=== PATIENT | male | born 1935 | race Caucasian/White ===

== ENCOUNTER 2018-01-28 10:04 | Day surgery (SDC) | payer MEDICARE, OTHER ==
[~2018-01-28 10:04] MED LIST: BUPIVACAINE HCL 0.75% INJ/PF (7.5 MG/1 ML) 10 ML SDV OD PRN; CHONDR SU A NA/HYALUR INTRAOC KIT (SURGICARE) ONE; EPINEPHRINE INJ/PF 1 MG/1 ML AMPULE ONE; KETOROLAC TROMETHAMINE 0.45% 4 DROP/0.4 ML DROPERETTE OD PRN; LIDOCAINE 1% INJ-PF (10 MG/ML) 30 ML SDV ONE; LIDOCAINE 4% INJ/PF (40 MG/ML) 5 ML AMPUL OD PRN
[2018-01-28] MEDS: TETRACAINE HCL 0.5% OPH SOLN 0.6 ML DROPERETTE OD PRN ×2 (10:21→10:44)
[2018-01-28] MEDS: TROPICAMIDE 1% OPH SOLN 3 ML OD PRN ×3 (10:22→10:44)
[2018-01-28] MEDS: CYCLOPENTOLATE 0.2%/PHENYLEPHRINE 1% OPH SOLN 2 ML OD PRN ×3 (10:22→10:44)
[2018-01-28] MEDS: BESIFLOXACIN HCL 0.6% OPH SUSP 5 ML BOTTLE OD PRN ×3 (10:23→11:16)
[2018-01-28] MEDS ORDERED: FENTANYL CITRATE INJ/PF 100 MCG/2 ML AMPUL ONE (10:29)
[2018-01-28] MEDS ORDERED: MIDAZOLAM 2 MG/2 ML INJ ONE (10:29)
[2018-01-28] MEDS ORDERED: ONDANSETRON HCL INJ/PF 4 MG/2 ML SDV ONE (10:30)
--- NOTE | 2018-01-28 11:44 | [facility] OPERATIVE REPORT E ---
[facility] Operative Report NAME: CRISTIAN MOMIN AGE: 82Y DATE OF SURGERY: 01/28/2018 ROOM: PREOPERATIVE DIAGNOSIS: Cataract, right eye. POSTOPERATIVE DIAGNOSIS: Cataract, right eye. PROCEDURE PERFORMED: Phacoemulsification with posterior chamber intraocular lens, right eye. SURGEON: MARTELL JEREZ M.D. ANESTHESIA: Topical with MAC. INDICATION FOR SURGERY: Difficulty reading road signs and small print. BEST CORRECTED VISUAL ACUITY: 20/50. DESCRIPTION OF PROCEDURE: The patient was brought to the operating room and placed on the operative table. Following tetracaine drops, topical anesthesia was administered. This consisted of instrument wipe pledgets soaked in a solution of 4% Xylocaine mixed with 0.75% Marcaine in a 1:2 ratio. A 2 x 1 cm pledget was placed in the superior fornix. A 1 x 1 cm pledget was placed in the inferior fornix. The eye was patched shut for 5 minutes. The patch was removed. The eye was sterilely prepped and draped in the usual manner. Lid speculum was placed in the eye. The pledgets were removed, 4-0 black silk sutures were placed around the superior and the inferior rectus muscles to be used as traction. A conjunctival peritomy was made at the 10 o'clock position. Hemostasis was obtained with bipolar cautery. A posterior limbal groove was created using a crescent knife and dissected anteriorly towards the cornea. A sharp point blade was used to create a paracentesis site at the 2 o'clock position. A 2.4 mm keratome was used to enter the anterior chamber through the groove. Viscoelastic was injected into the anterior chamber. An anterior capsulotomy was performed using Utrata forceps in a capsulorrhexis fashion. Hydrodissection and hydrodelineation were performed. Phacoemulsification was performed in qniehb-zer-yglmrvy technique. Total phaco time, 55 seconds. Following this, the I/A unit was used to remove residual cortex. Viscoelastic was injected into the capsular bag. Intraocular lens Model [id number], 21.5 diopters, serial number [id number] was placed in the capsular bag. The I/A unit was used to remove residual viscoelastic. The wound was seen to be watertight under high and low pressure, and no sutures were placed. The intraocular lens was well centered. The pressure was adjusted in the eye to normal pressure. The 4-0 black silk sutures and lid speculum were removed. The eye was shielded after Besivance drops were placed. The patient tolerated the procedure well and was sent to the recovery room in good condition. DICTATING PHYSICIAN: AMRTELL JEREZ M.D. [id number] PHY#: [id number] ID: [id number] JOB#: [id number] ACCT: [id number] cc:MARTELL JEREZ M.D. >
--- NOTE | 2018-01-28 11:49 | [facility] DISCHARGE SUMMARY E ---
[facility] Discharge Summary NAME: CRISTIAN MOMIN AGE: 82Y ADMITTED: 01/28/2018 DISCHARGED: 01/28/2018 HOSPITAL COURSE: The patient is an 82-year-old gentleman who underwent uneventful cataract extraction with intraocular lens implant, right eye, on 01/28/2018. He will be discharged to home. He was instructed to resume preoperative medications, to take Tylenol as needed for discomfort, to keep his eye shielded, to use Durezol, Ilevro, and Besivance at 3:00 p.m. and 8:00 p.m., and to follow up in my office in 1 day. DICTATING PHYSICIAN: MARTELL JEREZ M.D. [id number] PHY#: [id number] ID: [id number] JOB#: [id number] ACCT: [id number] cc:MARTELL JEREZ M.D. >
== END 2018-01-28 12:05 | disposition home or self-care (01) ==
LOC: SC 10:04
PROVIDERS: ATTEND Ophthalmology
DX: H25.813 Combined forms of age-related cataract, bilateral (principal); H18.00 Unspecified corneal deposit; H04.123 Dry eye syndrome of bilateral lacrimal glands; H40.033 Anatomical narrow angle, bilateral; H01.002 Unspecified blepharitis right lower eyelid; H01.005 Unspecified blepharitis left lower eyelid; H43.813 Vitreous degeneration, bilateral; G47.33 Obstructive sleep apnea (adult) (pediatric); I10 Essential (primary) hypertension; Z87.891 Personal history of nicotine dependence
CPT/HCPCS: 66984; V2632; J2250; J3490 ×4; A9270; J0171; J2405; 142; J3010

== ENCOUNTER 2018-02-27 09:48 | Day surgery (SDC) | payer MEDICARE, OTHER ==
[~2018-02-27 09:48] MED LIST changes: -BUPIVACAINE HCL 0.75% INJ/PF (7.5 MG/1 ML) 10 ML SDV OD PRN; +BUPIVACAINE HCL 0.75% INJ/PF (7.5 MG/1 ML) 10 ML SDV OS PRN; -CHONDR SU A NA/HYALUR INTRAOC KIT (SURGICARE) ONE; -EPINEPHRINE INJ/PF 1 MG/1 ML AMPULE ONE; -KETOROLAC TROMETHAMINE 0.45% 4 DROP/0.4 ML DROPERETTE OD PRN; +KETOROLAC TROMETHAMINE 0.45% 4 DROP/0.4 ML DROPERETTE OS PRN; -LIDOCAINE 1% INJ-PF (10 MG/ML) 30 ML SDV ONE; -LIDOCAINE 4% INJ/PF (40 MG/ML) 5 ML AMPUL OD PRN; +LIDOCAINE 4% INJ/PF (40 MG/ML) 5 ML AMPUL OS PRN
[2018-02-27] MEDS: CYCLOPENTOLATE 0.2%/PHENYLEPHRINE 1% OPH SOLN 2 ML OS PRN ×3 (10:02→10:34)
[2018-02-27] MEDS: TROPICAMIDE 1% OPH SOLN 3 ML OS PRN ×3 (10:02→10:34)
[2018-02-27] MEDS: BESIFLOXACIN HCL 0.6% OPH SUSP 5 ML BOTTLE OS PRN ×4 (10:03→11:11)
[2018-02-27] MEDS: TETRACAINE HCL 0.5% OPH SOLN 0.6 ML DROPERETTE OS PRN ×2 (10:04→10:34)
[2018-02-27] MEDS ORDERED: FENTANYL CITRATE INJ/PF 100 MCG/2 ML AMPUL ONE (10:34)
[2018-02-27] MEDS ORDERED: ONDANSETRON HCL INJ/PF 4 MG/2 ML SDV ONE (10:34)
[2018-02-27] MEDS ORDERED: MIDAZOLAM 2 MG/2 ML INJ ONE (10:34)
[2018-02-27] MEDS: CHONDR SU A NA/HYALUR INTRAOC KIT (SURGICARE) ONE ×2 (10:58)
[2018-02-27] MEDS: EPINEPHRINE INJ/PF 1 MG/1 ML AMPULE ONE ×2 (10:58)
[2018-02-27] MEDS: LIDOCAINE 1% INJ-PF (10 MG/ML) 30 ML SDV ONE ×2 (10:58)
--- NOTE | 2018-02-27 11:34 | [facility] OPERATIVE REPORT E ---
[facility] Operative Report NAME: CRISTIAN MOMIN AGE: 82Y DATE OF SURGERY: 02/27/2018 ROOM: PREOPERATIVE DIAGNOSIS: Cataract, left eye. POSTOPERATIVE DIAGNOSIS: Cataract, left eye. PROCEDURE PERFORMED: Phacoemulsification with posterior chamber intraocular lens, left eye. SURGEON: MARTELL JEREZ M.D. ANESTHESIA: Topical with MAC. INDICATIONS FOR SURGERY: Difficulty reading small print. Best corrected visual acuity 20/50. PROCEDURE: The patient was brought to the Operating Room and placed on the operative table. Following tetracaine drops, topical anesthesia was administered. This consisted of instrument wipe pledgets soaked in a solution of 4% Xylocaine mixed with 0.75% Marcaine in a 1:2 ratio. A 2 x 1 cm pledget was placed in the superior fornix. A 1 x 1 cm pledget was placed in the inferior fornix. The eye was patched shut for 5 minutes. The patch was removed. The eye was sterilely prepped and draped in the usual manner. Lid speculum was placed in the eye. The pledgets were removed. 4-0 black silk sutures were placed around the superior and the inferior rectus muscles to be used as traction. A conjunctival peritomy was made at the 10 o'clock position. Hemostasis was obtained with bipolar cautery. A posterior limbal groove was created using a crescent knife and dissected anteriorly towards the cornea. A sharp point blade was used to create a paracentesis site at the 2 o'clock position. A 2.4 mm keratome was used to enter the anterior chamber through the groove. Viscoelastic was injected into the anterior chamber. An anterior capsulotomy was performed using Utrata forceps in a capsulorrhexis fashion. Hydrodissection and hydrodelineation were performed. Phacoemulsification was performed in fdkppa-whz-pxqhthe technique. A total of 8.39 CDE phaco time was used. Following this, the I/A unit was used to remove residual cortex. Viscoelastic was injected into the capsular bag. Intraocular lens model SN60WF, 22.0 diopters, serial number [id number] was placed in the capsular bag. The I/A unit was used to remove residual viscoelastic. The wound was seen to be watertight under high and low pressure, and no sutures were placed. The intraocular lens was well centered. The pressure was adjusted in the eye to normal pressure. The 4-0 black silk sutures and lid speculum were removed. The eye was shielded after Besivance drops were placed. The patient tolerated the procedure well and was sent to the Recovery Room in good condition. DICTATING PHYSICIAN: MARTELL JEREZ M.D. [id number] [id number] PHY#: [id number] ID: [id number] JOB#: [id number] ACCT: [id number] cc:MARTELL JEREZ M.D. >
--- NOTE | 2018-02-27 11:37 | [facility] DISCHARGE SUMMARY E ---
[facility] Discharge Summary NAME: CRISTIAN MOMIN AGE: 82Y ADMITTED: 02/27/2018 DISCHARGED: 02/27/2018 HOSPITAL COURSE: The patient is an 82-year-old gentleman who underwent uneventful cataract extraction with intraocular lens implant left eye on 02/27/2018. He will be discharged to home. He is instructed to resume preoperative medications, to take Tylenol as needed for discomfort, to keep his eye shielded, to use Besivance, Durezol, and Ilevro at 3 p.m. and 8 p.m., and to follow up in my office in 1 day. DICTATING PHYSICIAN: MARTELL JEREZ M.D. [id number] [id number] PHY#: [id number] ID: [id number] JOB#: [id number] ACCT: [id number] cc:MARTELL JEREZ M.D. >
== END 2018-02-27 11:46 | disposition home or self-care (01) ==
LOC: SC 09:48
PROVIDERS: ATTEND Ophthalmology
DX: H25.812 Combined forms of age-related cataract, left eye (principal); Z96.1 Presence of intraocular lens; J44.9 Chronic obstructive pulmonary disease, unspecified; I10 Essential (primary) hypertension; G30.9 Alzheimer's disease, unspecified; Z86.73 Personal history of transient ischemic attack (TIA), and cerebral infarction without residual deficits; Z79.82 Long term (current) use of aspirin; Z70.2 Counseling related to sexual behavior and orientation of third party; Z99.81 Dependence on supplemental oxygen; Z79.51 Long term (current) use of inhaled steroids
CPT/HCPCS: 66984; V2632; J2250; J3490 ×4; A9270; J0171; J2405; 142; J3010

== ENCOUNTER → 2018-04-24 | Outpatient (CLI) | payer MEDICARE, OTHER ==
--- NOTE | 2018-04-24 09:18 | ST Modified Barium Swallow ---
Recommendation - Recommendations Recommendations: Patient presents with normal swallow with mild residue of puree and solid trials in the valleculae. Flash penetration noted on thin liquids. No diet change recommendations at this time. Medical Diagnoses - Medical Diagnoses Medical Diagnosis Description & ICD-10 Code(s): R13.12 oropharyngeal phase dysphagia Other Medical Diagnoses/Co-Morbidities: Patient unable to report. ST Modified Barium Swallow - General Date: 04/24/18 Risks/Precautions: Falls Date of Onset: 03/26/18 - Patient unable to give onset date. - History History obtained from: Patient -: Medical - Patient reports occasional coughin and choking at meals. Patient unable to give onset date. Date of referral is listed above. Patient reports he does not believe he has trouble swallowing. Currently eating regular solids and thin liquids. Patient arrive with home oxygen; unable to state liter number. Medications: Patient unable to report. Allergies: No reported allergies. - Functional Status Prior Functional Status: INDEPENDENT: feeding - Independent Current Functional Limitations: feeding - Independent - Subjective Patient/caregiver goal(s): safe swallow Cognitive-Linguistic Function: Functional Speech Intelligibility: WNL Current Nutritional Means: PO Current PO diet: Regular Current symptoms: Coughing Pain: Patient reports, 0/5 - Objective Assessment: Upright, Left Lateral - Food Trials Used Food trials used: Thin liquids, Pureed, Regular The patient: Was Able to Self Feed, via cup, via spoon - Oral-Motor Skills Dentition: Dentures-Upper, Dentures-Lower - Assessment Oral prep: Normal Labial closure: Adequate Leakage: None Mastication: Adequate Lingual Movement: Normal Oral stage: Normal for this Procedure - Pharyngeal Stage Initiation of Pharyngeal Stage Reflex: Normal Decreased laryngeal elevation: No Reduced Velopharyngeal Closure: no Reduced pressure generation: No reduced tongue-based retraction: No Pre-swallow pooling in valleculae: None Pre-Swallow pooling in pyriforms: None Reduced Thyro-Hyoid approximation: No Reduced epiglottic excursion: No Reduced pharyngeal peristalsis/contraction: No Multiple Swallows with: Cleared w/ Liquid Assist Post-swallow residulas vallecular: Mild Post-Swallow residuals in pyriforms: None Reduced Cricopharyngeal opening: No - Fall Risk Assessment Medications/Conditions that increase fall risks include: Antidepressants, sedatives, anti-arrhythmic, diuretic, benzodiazipenes, neuroleptics. BP regulation problems, cardiac problems, balance or gait deficits, neurological problems. Is patient considered at risk for falls: yes Fall Risk Actions Taken: No action needed - Behavioral Observations During evaluation process patient: was cooperative, provided medical history - Patient had difficulty reporting medications and medical conditions; patient unable to report why he was on oxygen. - Treatment / Educational Needs: Treatment/Education Needs: Treatment consisted of patient education on the role of the Speech Pathologist. Patient's plan of care and golas were communicated as well as scheduling and attendance policies. Recommendations for initial home program were shared. Patient demonstrated understanding and verbalized agreement. - Impression/Summary Laryngeal Penetration: Flash Consistency: Thin Tracheal Aspiration: no Patient presents with: Normal swallow at eval Risk of Aspiration: Minimal Risk of nutritional compromise: None Evaluation and Findings: Patient unable to give detailed medical history. Reported no complaints. Clinician administered PO trials of thin, puree and regular consistencies. Flash penetration noted on thin liquid trials only. No aspiration noted. Mild residue in the valleculae noted on pratima cracker trial. Cleared with liquid assist. No coughing noted on any consistencies. No diet change recommendations at this time. Recommend alternating solids and liduids to reduce risk from residuals. - Recommendations NPO: no Solid diet recommendations: Regular Liquid Diet Modification: Thin Strict aspiration precautions: No Pt/Family education and followup with MD: Yes Dysphagia therapy with ASSEM[employer]ER [employer]IC[employer]CTOR: no Recommended techniques: Fully Upright During Meal, Alternate Bites/Sips Supervision: Independent Information, Precautions and Recommendations: Patient (Written), Patient (Verbal ) - Time Total Time: 20 - Plan of Care Strategies to optimize patient understanding include:: ongoing assessment of educational needs, implementation of educational strategies, and re-education. - - -: Thank you for the opportunity to work with this patient and his/her family. Should you have any questions about this patient's plan or progress, I can be reached at [phone]. Charge G Code? - - -: Yes ST F.L. Impairment Category - Rationale Based On Rationale Based On: Clin Find., Obj Measures - Swallowing Current G8996: CH 0% Impaired Goal G8997: CH 0% Impaired Discharge G8998: CH 0% Impaired
--- NOTE | 2018-04-24 09:18 | RADIOLOGY REPORT (SQ) ---
EXAM DESCRIPTION: MART SWALLOW COMPLETED DATE/TIME: 04/24/2018 8:50 am REASON FOR STUDY: DYSPHAGIA OROPHARYGEAL PHASE R13.12 DYSPHAGIA, OROPHARYNGEAL PHASE COMPARISON: None. TECHNIQUE: Videofluoroscopic swallowing examination was performed in conjunction with speech patholo gy. Videofluoroscopic imaging was obtained and reviewed and these are the findings: RADIATION DOSE: 1.3 minutes fluoro time 1 images saved to PACS. LIMITATIONS: None FINDINGS: The patient was brought into the fluoro room and placed upright on a modified barium swall ow chair. The patient was then given multiple consistencies mixed with barium to swallow under live fluoroscopic video guidance. According to the Speech Pathologist there was flash laryngeal penetrati on with thin barium. No aspiration identified. All other consistencies swallowed without incident. Please refer to the speech pathology report for further details. IMPRESSION: FLASH LARYNGEAL PENETRATION, WITHOUT ASPIRATION, SEEN WITH THIN BARIUM.PLEASE SEE SPEECH PATHOLOGIST REPORT FOR OTHER FINDINGS AND RECOMMENDATIONS. COMMENT: NONE Quality ID [id number]: Final reports for procedures using fluoroscopy that document radiation exposure meera riley, or exposure time and number of fluorographic images (if radiation exposure indices are not avail able) TECHNICAL DOCUMENTATION: JOB ID: [id number] [employer]- All Rights Reserved Reading location - IP/workstation name: [email or web address] [id number]
== END ==
LOC: RAD 07:41
PROVIDERS: ATTEND Internal Medicine Gastroenterology
DX: R13.12 Dysphagia, oropharyngeal phase (principal)
CPT/HCPCS: 74230; 92611; G8996; G8997; G8998

== ENCOUNTER 2019-01-21 10:44 | Emergency (ER) | payer MEDICARE, OTHER ==
--- NOTE | 2019-01-21 11:21 | ER Document Report ---
ED Fall - General Chief Complaint: Fall Stated Complaint: FALL Time Seen by Provider: 01/21/19 10:58 Primary Care Provider: ENRIQUETA ARANGO MD [Primary Care Provider] - Follow up as needed Information source: Patient Notes: Patient is an 83-year-old male with past medical history including Parkinson's disease receiving physical therapy as well as COPD on 3 L nasal cannula oxygen at home who presents today with multiple falls over this last week. These have all been witnessed. Supposedly no head trauma. Patient states he just feels like he "loses my balance". Patient denies any and all headache, vertigo, dizziness, lightheadedness, neck pain, chest pain, palpitations, abdominal pain, back pain, or extremity pain. He states he does have some pain to his left lateral foot, particularly the left lateral 3 toes, after the fall. TRAVEL OUTSIDE OF THE [place] IN LAST 30 DAYS: No - Related data Allergies/Adverse Reactions: No Known Allergies Allergy (Unverified 01/22/18 13:45) Past Medical History - Social History Smoking Status: Former Smoker Cigarette use (# per day): No Chew tobacco use (# tins/day): No Smoking Education Provided: No Family History: Reviewed & Not Pertinent - Past Medical History Cardiac Medical History: Reports: Hx Hypertension - MEDICATED Denies: Hx Heart Attack Pulmonary Medical History: Denies: Hx Asthma Neurological Medical History: Denies: Hx Cerebrovascular Accident, Hx Seizures GI Medical History: Denies: Hx Hepatitis, Hx Hiatal Hernia, Hx Ulcer Infectious Medical History: Denies: Hx Hepatitis Past Surgical History: Denies: Hx Open Heart Surgery, Hx Pacemaker Review of Systems - Review of Systems Constitutional: denies: Fever EENT: denies: Eye discharge, Nose discharge Cardiovascular: denies: Chest pain, Palpitations Respiratory: denies: Short of breath Gastrointestinal: denies: Vomiting Genitourinary: denies: Dysuria Musculoskeletal: denies: Leg swelling Skin: Other - no hives. denies: Rash Neurological/Psychological: Other - no slurred speech -: Yes All other systems reviewed and negative Physical Exam - Vital signs Vitals: Temp Pulse Resp BP Pulse Ox 97.7 F 84 20 110/80 94 01/21/19 11:08 01/21/19 11:08 01/21/19 11:08 01/21/19 11:08 01/21/19 11:08 Notes: Reviewed vital signs and nursing note as charted by RN. CONSTITUTIONAL: Alert and oriented and responds appropriately to questions. Well-appearing; well-nourished HEAD: Normocephalic; atraumatic EYES: PERRL; full extraocular range of motion ENT: Normal nose; no rhinorrhea; moist mucous membranes; pharynx without lesions noted NECK: Supple without meningismus; non-tender; no carotid bruit; no cervical lymphadenopathy, no masses CARD: Regular rate and rhythm; no murmurs; symmetric distal pulses RESP: Normal chest excursion without splinting or tachypnea; breath sounds clear and equal bilaterally; no wheezes, no rhonchi, no rales ABD/GI: Normal bowel sounds; non-distended; soft, non-tender; no palpable organomegaly or masses BACK: The back appears normal and is non-tender to palpation EXT: Patient has some tenderness without any obvious swelling, bruising, ecchymosis to the left lateral 3 toes of the left foot. Sensation is intact to light touch. Capillary refill intact SKIN: No acute lesions noted NEURO: CN 2-12 intact; 5/5 bilateral upper and lower extremity strength with sensation intact to light touch PSYCH: The patient's mood and manner are appropriate. Grooming and personal hygiene are appropriate. Course - Re-evaluation Re-evalutation: 01/21/19 11:17 Given the above history and physical examination we will obtain basic labs, CT scan of the head, cardiac labs, urinalysis, orthostatics, and reassess. I discussed with the patient and that this possibly could be progression or related to the Parkinson's disease. However, I would like to evaluate for any obvious bleed, infection, cardiac abnormality, dysrhythmia, or other cause of the possible falls. Patient currently has no pain other than his left lateral toes with no focal neurological deficits. X-ray of the foot has been ordered. 01/21/19 12:54 CT and labs as recorded. Urinalysis and x-ray of the foot pending. EKG shows heart of 79, normal sinus rhythm, normal axis, no ST elevation or depression. 01/21/19 15:07 X-ray and orthostatics as recorded. Still no focal neurological deficits. Still no complaints of pain. Patient will be discharged home with strict return precautions into to the care of his with follow-up with primary care physician. - Vital Signs Vital signs: Temp Pulse Resp BP Pulse Ox 97.7 F 77 20 122/56 L 94 01/21/19 11:08 01/21/19 11:42 01/21/19 11:08 01/21/19 11:42 01/21/19 11:08 - Laboratory Result Diagrams: 01/21/19 12:15 01/21/19 12:15 Laboratory results interpreted by me: 01/21/19 01/21/19 01/21/19 12:15 12:15 13:52 WBC 11.8 H RDW 14.4 H Seg Neutrophils % 78.6 H Lymphocytes % 10.2 L Absolute Neutrophils 9.3 H Creatinine 1.47 H Est GFR ( Amer) 56 L Est GFR (Non-Af Amer) 46 L Urine Ketones TRACE H Discharge - Discharge Clinical Impression: Falls frequently Sprain of left foot Qualifiers: Encounter type: initial encounter Qualified Code(s): S93.602A - Unspecified sprain of left foot, initial encounter Condition: Good Disposition: HOME, SELF-CARE Additional Instructions: Come back immediately with any chest pain, weakness or numbness, nausea or vomiting, fevers, change in mental status, or any other acute problems. Please follow-up with the primary care physician as we have discussed. Referrals: ENRIQUETA ARANGO MD [Primary Care Provider] - Follow up as needed
--- NOTE | 2019-01-21 12:30 | RADIOLOGY REPORT (SQ) ---
EXAM DESCRIPTION: CT HEAD WITHOUT COMPLETED DATE/TIME: 01/21/2019 11:51 am REASON FOR STUDY: 13Hw; frequent falls on plavix COMPARISON: None. TECHNIQUE: Axial images acquired through the brain without intravenous contrast. Images reviewed wi th bone, brain and subdural windows. Additional sagittal and coronal reconstructions were generated. Images stored on PACS. All CT scanners at this facility use dose modulation, iterative reconstruction, and/or weight based d osing when appropriate to reduce radiation dose to as low as reasonably achievable (ALARA). [facility]: Dose Right [facility]: CareDose [facility]: Dose Right [facility]: Teradose 4D [facility]: [employer] [place] RADIATION DOSE: CT Rad equipment meets quality standard of care and radiation dose reduction techniq ues were employed. CTDIvol: 48.6 mGy. DLP: 953 mGy-cm.mGy. LIMITATIONS: None. FINDINGS: VENTRICLES: Prominent. CEREBRUM: No masses. No hemorrhage. No midline shift. Areas of low density in the white matter mos t likely due to chronic micro-vascular ischemic change. No evidence for acute infarction. CEREBELLUM: No masses. No hemorrhage. No alteration of density. No evidence for acute infarction. EXTRAAXIAL SPACES: Age-related involutional change. No fluid collections. No masses. ORBITS AND GLOBE: No intra- or extraconal masses. Normal contour of globe without masses. CALVARIUM: No fracture. PARANASAL SINUSES: No fluid or mucosal thickening. SOFT TISSUES: No mass or hematoma. OTHER: No other significant finding. IMPRESSION: CHRONIC CHANGES OF ATROPHY AND MICROVASCULAR ISCHEMIA. NO ACUTE PROCESS. EVIDENCE OF ACUTE STROKE: NO. TECHNICAL DOCUMENTATION: JOB ID: [id number] Quality ID # [id number]: Final reports with documentation of one or more dose reduction techniques (e.g., Au tomated exposure control, adjustment of the mA and/or kV according to patient size, use of iterative reconstruction technique) 2010 [employer]- All Rights Reserved Reading location - IP/workstation name: [email or web address]
[2019-01-21 12:34] LABS: ABSOLUTE EOSINOPHILS # (AUTO) 0.1 10^3/uL (0.0-0.6); ABSOLUTE LYMPHOCYTES (AUTO) 1.2 10^3/uL (0.5-4.7); ABSOLUTE MONOCYTES (AUTO) 1.2 10^3/uL (0.1-1.4); ABSOLUTE NEUT (AUTO) 9.3 10^3/uL (1.7-8.2); BASOPHILS % (AUTO) 0.3 % (0-2); EOSINOPHILS % (AUTO) 0.7 % (0-6); HEMATOCRIT 44.8 % (37.9-51.0); HEMOGLOBIN 15.1 g/dL (13.5-17.0); LYMPHOCYTES % (AUTO) 10.2 % (13-45); MEAN CORPUSCULAR HEMOGLOBIN 29.3 pg (27.0-33.4); MEAN CORPUSCULAR HGB CONC 33.6 g/dL (32.0-36.0); MEAN CORPUSCULAR VOLUME 87 fl (80-97); MONOCYTES % (AUTO) 10.2 % (3-13); PLATELET COUNT 183 10^3/uL (150-450); RED BLOOD COUNT 5.14 10^6/uL (4.35-5.55); RED CELL DISTRIBUTION WIDTH 14.4 % (11.5-14.0); SEGMENTED NEUTROPHILS % (AUTO) 78.6 % (42-78); TOTAL CELLS COUNTED % (AUTO) 100 %; WHITE BLOOD COUNT 11.8 10^3/uL (4.0-10.5)
[2019-01-21 12:58] LABS: ANION GAP 9 (5-19); BLOOD UREA NITROGEN 19 mg/dL (7-20); CALCIUM 9.1 mg/dL (8.4-10.2); CARBON DIOXIDE 22 mmol/L (22-30); CHLORIDE 107 mmol/L (98-107); GLUCOSE 108 mg/dL (75-110); POTASSIUM 4.4 mmol/L (3.6-5.0); SODIUM 137.8 mmol/L (137-145)
[2019-01-21 14:14] LABS: APPEARANCE,URINE CLEAR; BILIRUBIN,URINE NEGATIVE (NEGATIVE); COLOR,URINE YELLOW; GLUCOSE, URINE NEGATIVE (NEGATIVE); KETONES,URINE TRACE mg/dL (NEGATIVE); LEUKOCYTE ESTERASE,URINE NEGATIVE (NEGATIVE); NITRITE,URINE NEGATIVE (NEGATIVE); PROTEIN,URINE NEGATIVE (NEGATIVE); URINE SPECIFIC GRAVITY 1.023; UROBILINOGEN,URINE NEGATIVE mg/dL (<2.0)
--- NOTE | 2019-01-21 14:43 | RADIOLOGY REPORT (SQ) ---
EXAM DESCRIPTION: FOOT LEFT COMPLETE COMPLETED DATE/TIME: 01/21/2019 1:42 pm REASON FOR STUDY: 13Hw; left foot COMPARISON: None. NUMBER OF VIEWS: Three views. TECHNIQUE: AP, lateral and oblique radiographic images acquired of the left foot. LIMITATIONS: None. FINDINGS: MINERALIZATION: Mild osteopenia BONES: No acute fracture or dislocation. No worrisome bone lesions. JOINTS: No effusions. SOFT TISSUES: No soft tissue swelling. No foreign body. OTHER: Anterior and posterior heel spurs. IMPRESSION: No acute findings. Heel spurs. No other significant bony abnormality. TECHNICAL DOCUMENTATION: JOB ID: [id number] [employer]- All Rights Reserved Reading location - IP/workstation name: [email or web address]
[2019-01-21 16:13] VITALS: BP 131/74
--- NOTE | 2019-01-21 18:42 | EKG REPORT ---
SEVERITY:- NORMAL ECG - SINUS RHYTHM : Confirmed by: Kodi Michelle MD 21-Jan-2019 18:41:30
== END 2019-01-21 16:11 | disposition home or self-care (01) ==
LOC: ER 10:44
DX: S93.602A Unspecified sprain of left foot, initial encounter (principal); W19.XXXA Unspecified fall, initial encounter; I10 Essential (primary) hypertension; J44.9 Chronic obstructive pulmonary disease, unspecified; G20 Parkinson's disease; Z91.81 History of falling; Z99.81 Dependence on supplemental oxygen
CPT/HCPCS: 36415; 70450; 80048; 81001; 84484; 85025; 93005; 93010; 99285

== ENCOUNTER 2019-09-01 18:40 | Emergency (ER) | payer MEDICARE, OTHER ==
--- NOTE | 2019-09-01 19:38 | ER Document Report ---
ED Medical Screen (RME) - General Chief Complaint: Shortness Of Breath Stated Complaint: COUGH,HEADACHE,URINARY PROBLEMS Time Seen by Provider: 09/01/19 19:29 Primary Care Provider: ENRIQUETA ARANGO MD [Primary Care Provider] - Follow up as needed Notes: 83-year-old male with Parkinson's, early stages of dementia, COPD on 3 L of oxygen [id number] presents to the emergency department with cough and general malaise. Granddaughter providing history at the bedside. She states that a home health nurse comes in a couple of days a week and she was concerned that she heard adventitious breath sounds and that he was altered so she recommended that he get seen for treatment. Patient states that he has had cough, headache over the last couple of days but none current, no chest pain, no abdominal pain. Granddaughter states that he has also recently been incontinent of urine which is new for him. Exam: Well-appearing in no acute distress, mild end expiratory wheezing in all [place], regular cardiac rate and rhythm I have greeted and performed a rapid initial assessment of this patient. A comprehensive ED assessment and evaluation of the patient, analysis of test results and completion of medical decision making process will be conducted by an additional ED providers. TRAVEL OUTSIDE OF THE [place] IN LAST 30 DAYS: No - Related Data Allergies/Adverse Reactions: No Known Allergies Allergy (Unverified 01/22/18 13:45) Home Medications: 02 @ 3L. lyrica, Past Medical History - Social History Chew tobacco use (# tins/day): No Frequency of alcohol use: None - Past Medical History Cardiac Medical History: Reports: Hx Hypercholesterolemia, Hx Hypertension - MEDICATED Denies: Hx Heart Attack Pulmonary Medical History: Reports: Hx COPD Denies: Hx Asthma Neurological Medical History: Denies: Hx Cerebrovascular Accident, Hx Seizures Renal/ Medical History: Denies: Hx Peritoneal Dialysis GI Medical History: Denies: Hx Hepatitis, Hx Hiatal Hernia, Hx Ulcer Infectious Medical History: Denies: Hx Hepatitis Past Surgical History: Reports: Hx Vascular Surgery - fem-pop. Denies: Hx Open Heart Surgery, Hx Pacemaker Physical Exam - Vital signs Vitals: Temp Pulse Resp BP Pulse Ox 98.0 F 68 26 H 157/86 H 93 09/01/19 19:13 09/01/19 19:13 09/01/19 19:13 09/01/19 19:13 09/01/19 19:13 Course - Vital Signs Vital signs: Temp Pulse Resp BP Pulse Ox 98.0 F 68 26 H 157/86 H 93 09/01/19 19:29 09/01/19 19:29 09/01/19 19:29 09/01/19 19:29 09/01/19 19:29 Doctor's Discharge - Discharge Referrals: ENRIQUETA ARANGO MD [Primary Care Provider] - Follow up as needed
[2019-09-01 20:24] LABS: ABSOLUTE EOSINOPHILS # (AUTO) 0.3 10^3/uL (0.0-0.6); ABSOLUTE LYMPHOCYTES (AUTO) 1.8 10^3/uL (0.5-4.7); ABSOLUTE MONOCYTES (AUTO) 0.8 10^3/uL (0.1-1.4); ABSOLUTE NEUT (AUTO) 6.3 10^3/uL (1.7-8.2); BASOPHILS % (AUTO) 0.4 % (0-2); EOSINOPHILS % (AUTO) 2.9 % (0-6); HEMATOCRIT 46.6 % (37.9-51.0); HEMOGLOBIN 15.5 g/dL (13.5-17.0); LYMPHOCYTES % (AUTO) 19.4 % (13-45); MEAN CORPUSCULAR HEMOGLOBIN 29.5 pg (27.0-33.4); MEAN CORPUSCULAR HGB CONC 33.3 g/dL (32.0-36.0); MEAN CORPUSCULAR VOLUME 88 fl (80-97); PLATELET COUNT 214 10^3/uL (150-450); RED BLOOD COUNT 5.27 10^6/uL (4.35-5.55); RED CELL DISTRIBUTION WIDTH 14.5 % (11.5-14.0); SEGMENTED NEUTROPHILS % (AUTO) 68.3 % (42-78); TOTAL CELLS COUNTED % (AUTO) 100 %; WHITE BLOOD COUNT 9.2 10^3/uL (4.0-10.5)
[2019-09-01 20:43] LABS: ALBUMIN 4.2 g/dL (3.5-5.0); ALKALINE PHOSPHATASE 107 U/L (38-126); ANION GAP 11 (5-19); ASPARTATE AMINO TRANSFERASE 24 U/L (17-59); BILIRUBIN,DIRECT 0.1 mg/dL (0.0-0.4); BILIRUBIN,TOTAL 0.5 mg/dL (0.2-1.3); BLOOD UREA NITROGEN 23 mg/dL (7-20); CALCIUM 9.5 mg/dL (8.4-10.2); CARBON DIOXIDE 24 mmol/L (22-30); CHLORIDE 107 mmol/L (98-107); GLUCOSE 98 mg/dL (75-110); POTASSIUM 4.5 mmol/L (3.6-5.0); TOTAL PROTEIN 7.7 g/dL (6.3-8.2)
--- NOTE | 2019-09-01 20:49 | RADIOLOGY REPORT (SQ) ---
EXAM DESCRIPTION: CT HEAD WITHOUT INTRAVENOUS CONTRAST CLINICAL HISTORY: [facility] COMPARISON: 19/03/2019. TECHNIQUE: CT of the head was performed without intravenous contrast .This exam was performed according to our departmental dose-optimization program, which includes automated exposure control, adjustment of the mA and/or KV according to the patient's size and/or use of iterative reconstruction technique. FINDINGS: Moderate lateral and third ventricle enlargement. Includes temporal horns of lateral ventricles. Fourth ventricle mildly enlarged. Cortical sulci relatively less prominent. Nonspecific mild periventricular white matter hypodensity. No suspicious acute intra-axial or extra-axial abnormality. Atherosclerotic disease of distal intracranial internal carotid arteries as well as distal right vertebral artery. Left anterior ethmoid sinus disease increased since previous study. Minimal fluid in mastoid air cells. Bony calvarium is unremarkable. IMPRESSION: 1. Size of ventricles larger compared to the size of the sulci. Possible NPH. Suggest clinical correlation if there are typical symptoms. 2. No acute focal abnormality. 3. Atherosclerotic disease. 4. Minimal fluid in mastoid air cells. Mild left ethmoid sinus disease not seen previously.
--- NOTE | 2019-09-01 20:55 | RADIOLOGY REPORT (SQ) ---
XR CHEST 1 VIEW EXAM DATE: 09/01/2019 7:34 PM [employer] HISTORY: Shortness of breath. COMPARISON: None. FINDINGS: The cardiomediastinal silhouette is within normal limits. No pulmonary vascular congestion is seen. There is a focal airspace opacity at the left lung base. No large pleural effusions or pneumothorax. No acute bony findings are seen. IMPRESSION: Left lung base airspace opacity which may represent infection or atelectasis.
[2019-09-01] MEDS ORDERED: LEVOFLOXACIN 750 MG/D5W RTU 750 MG/150 ML RTUPB IV ONE (22:19)
[2019-09-01 22:45] LABS: NT PRO BNP 40 pg/mL (<450)
[2019-09-01 22:48] LABS: TROPONIN I < 0.012 ng/mL
[2019-09-01 22:50] LABS: APPEARANCE,URINE CLEAR; BILIRUBIN,URINE NEGATIVE (NEGATIVE); COLOR,URINE YELLOW; GLUCOSE, URINE NEGATIVE (NEGATIVE); KETONES,URINE TRACE mg/dL (NEGATIVE); LEUKOCYTE ESTERASE,URINE NEGATIVE (NEGATIVE); NITRITE,URINE NEGATIVE (NEGATIVE); PROTEIN,URINE 30 mg/dL (NEGATIVE); URINE SPECIFIC GRAVITY 1.025; UROBILINOGEN,URINE NEGATIVE mg/dL (<2.0)
--- NOTE | 2019-09-02 00:36 | EKG REPORT ---
SEVERITY:- BORDERLINE ECG - SINUS RHYTHM LOW VOLTAGE THROUGHOUT : Confirmed by: Adry Benitez MD 02-Sep-2019 00:35:02
--- NOTE | 2019-09-02 00:37 | ER Document Report ---
ED Respiratory Problem - General Chief Complaint: Shortness Of Breath Stated Complaint: COUGH,HEADACHE,URINARY PROBLEMS Time Seen by Provider: 09/01/19 19:29 Primary Care Provider: ENRIQUETA ARANGO MD [Primary Care Provider] - Follow up as needed Mode of Arrival: Wheelchair Information source: Patient Notes: 83-year-old male patient presenting to the emergency department chief complaint of increased shortness of breath and productive cough at home over the last 3 days. Patient does have a history of COPD, emphysema and recurrent pneumonia. At baseline patient wears 3 L of oxygen at home 22/04. He and his deny him having any fevers. She does report some increased lower extremity edema and foul-smelling urine. TRAVEL OUTSIDE OF THE [place] IN LAST 30 DAYS: No - Related Data Allergies/Adverse Reactions: No Known Allergies Allergy (Unverified 01/22/18 13:45) Home Medications: 02 @ 3L. lyrica, Past Medical History - General Information source: Patient - Social History Smoking Status: Former Smoker Chew tobacco use (# tins/day): No Frequency of alcohol use: None Family History: Reviewed & Not Pertinent Patient has suicidal ideation: No Patient has homicidal ideation: No - Past Medical History Cardiac Medical History: Reports: Hx Hypercholesterolemia, Hx Hypertension - MEDICATED Denies: Hx Heart Attack Pulmonary Medical History: Reports: Hx COPD Denies: Hx Asthma Neurological Medical History: Denies: Hx Cerebrovascular Accident, Hx Seizures Renal/ Medical History: Denies: Hx Peritoneal Dialysis GI Medical History: Denies: Hx Hepatitis, Hx Hiatal Hernia, Hx Ulcer Infectious Medical History: Denies: Hx Hepatitis Past Surgical History: Reports: Hx Vascular Surgery - fem-pop. Denies: Hx Open Heart Surgery, Hx Pacemaker Review of Systems - Review of Systems Constitutional: No symptoms reported. denies: Fever EENT: No symptoms reported Cardiovascular: No symptoms reported Respiratory: Cough, Short of breath, Sputum Gastrointestinal: No symptoms reported Genitourinary: Other - Strong smelling urine Male Genitourinary: No symptoms reported Musculoskeletal: No symptoms reported Skin: No symptoms reported Hematologic/Lymphatic: No symptoms reported Neurological/Psychological: No symptoms reported Physical Exam - Vital signs Vitals: Temp Pulse Resp BP Pulse Ox 98.0 F 68 26 H 157/86 H 93 09/01/19 19:13 09/01/19 19:13 09/01/19 19:13 09/01/19 19:13 09/01/19 19:13 - Notes Notes: PHYSICAL EXAMINATION: GENERAL: Obese. HEAD: Atraumatic, normocephalic. EYES: Pupils equal round and reactive to light, extraocular movements intact, sclera anicteric, conjunctiva are normal. ENT: Nares patent, oropharynx clear without exudates. Moist mucous membranes. NECK: Normal range of motion, supple without lymphadenopathy LUNGS: Breath sounds clear to auscultation bilaterally and equal. No wheezes rales or rhonchi. HEART: Regular rate and rhythm without murmurs ABDOMEN: Soft, nontender, nondistended abdomen. No guarding, no rebound. No masses appreciated. Musculoskeletal: Normal range of motion, no pitting or edema. No cyanosis. NEUROLOGICAL: Cranial nerves grossly intact. Normal sensory, motor exams PSYCH: Normal mood, normal affect. SKIN: Warm, Dry, normal turgor, no rashes or lesions noted. Course - Re-evaluation Re-evalutation: Laboratory 09/01/19 09/01/19 09/01/19 20:00 20:00 20:00 WBC 9.2 RBC 5.27 Hgb 15.5 Hct 46.6 MCV 88 MCH 29.5 MCHC 33.3 RDW 14.5 H Plt Count 214 Lymph % (Auto) 19.4 Glenn % (Auto) 9.0 Eos % (Auto) 2.9 Baso % (Auto) 0.4 Absolute Neuts (auto) 6.3 Absolute Lymphs (auto) 1.8 Absolute Monos (auto) 0.8 Absolute Eos (auto) 0.3 Absolute Basos (auto) 0.0 Seg Neutrophils % 68.3 Sodium 142.1 Potassium 4.5 Chloride 107 Carbon Dioxide 24 Anion Gap 11 BUN 23 H Creatinine 1.36 H Est GFR ( Amer) > 60 Est GFR (MDRD) Non-Af 50 L Glucose 98 Lactic Acid 1.2 Calcium 9.5 Total Bilirubin 0.5 Direct Bilirubin 0.1 Neonat Total Bilirubin Not Reportable Neonat Direct Bilirubin Not Reportable Neonat Indirect Bili Not Reportable AST 24 ALT 8 Alkaline Phosphatase 107 Troponin I NT-Pro-B Natriuret Pep Total Protein 7.7 Albumin 4.2 Urine Color Urine Appearance Urine pH Ur Specific [place] Urine Protein Urine Glucose (UA) Urine Ketones Urine Blood Urine Nitrite Urine Bilirubin Urine Urobilinogen Ur Leukocyte Esterase Urine WBC (Auto) Urine RBC (Auto) U Hyaline Cast (Auto) Squamous Epi Cells Auto Urine Mucus (Auto) Urine Ascorbic Acid 09/01/19 09/01/19 20:00 22:20 WBC RBC Hgb Hct MCV MCH MCHC RDW Plt Count Lymph % (Auto) Glenn % (Auto) Eos % (Auto) Baso % (Auto) Absolute Neuts (auto) Absolute Lymphs (auto) Absolute Monos (auto) Absolute Eos (auto) Absolute Basos (auto) Seg Neutrophils % Sodium Potassium Chloride Carbon Dioxide Anion Gap BUN Creatinine Est GFR ( Amer) Est GFR (MDRD) Non-Af Glucose Lactic Acid Calcium Total Bilirubin Direct Bilirubin Neonat Total Bilirubin Neonat Direct Bilirubin Neonat Indirect Bili AST ALT Alkaline Phosphatase Troponin I < 0.012 NT-Pro-B Natriuret Pep 40 Total Protein Albumin Urine Color YELLOW Urine Appearance CLEAR Urine pH 5.0 Ur Specific [place] 1.025 Urine Protein 30 H Urine Glucose (UA) NEGATIVE Urine Ketones TRACE H Urine Blood NEGATIVE Urine Nitrite NEGATIVE Urine Bilirubin NEGATIVE Urine Urobilinogen NEGATIVE Ur Leukocyte Esterase NEGATIVE Urine WBC (Auto) 1 Urine RBC (Auto) 1 U Hyaline Cast (Auto) 1 Squamous Epi Cells Auto 1 Urine Mucus (Auto) FEW Urine Ascorbic Acid NEGATIVE Chest X-Ray 09/01/19 19:34 IMPRESSION: Left lung base airspace opacity which may represent infection or atelectasis. Head CT 09/01/19 19:34 IMPRESSION: 1. Size of ventricles larger compared to the size of the sulci. Possible NPH. Suggest clinical correlation if there are typical symptoms. 2. No acute focal abnormality. 3. Atherosclerotic disease. 4. Minimal fluid in mastoid air cells. Mild left ethmoid sinus disease not seen previously. Labs as recorded above are unremarkable, no leukocytosis. Head CT negative as ordered by triage provider. Small opacity noted in the left lung base given patient's presentation and symptoms likely pneumonia. Patient's vital signs have been within normal limits here in the emergency department, he has had no episodes of hypotension, tachycardia, fever or tachypnea. He will be given a dose of Levaquin IV here in the emergency department and will be discharged home on Levaquin and prednisone. Patient and are in agreements with this plan. The patient's emergency department workup and current diagnosis were explained to the patient and or family. Follow-up instructions were provided. Medications if prescribed were discussed. Instructions for when to return to the emergency department including specific worrisome symptoms were discussed with the patient and/or family. - Vital Signs Vital signs: Temp Pulse Resp BP Pulse Ox 98 F 67 17 127/79 H 96 09/02/19 00:43 09/02/19 00:43 09/02/19 00:43 09/02/19 00:43 09/02/19 00:43 - Laboratory Result Diagrams: 09/01/19 20:00 09/01/19 20:00 Laboratory results interpreted by me: 09/01/19 09/01/19 09/01/19 20:00 20:00 22:20 RDW 14.5 H BUN 23 H Creatinine 1.36 H Est GFR (MDRD) Non-Af 50 L Urine Protein 30 H Urine Ketones TRACE H Discharge - Discharge Clinical Impression: COPD exacerbation Pneumonia Qualifiers: Pneumonia type: due to unspecified organism Laterality: left Lung location: lower lobe of lung Qualified Code(s): J18.9 - Pneumonia, unspecified organism Condition: Stable Disposition: HOME, SELF-CARE Additional Instructions: You have been diagnosed with a pneumonia and COPD exacerbation. It is very important that you take all of your antibiotics until they are gone even if you are feeling better. Please return to the emergency department immediately if you began having worsening shortness of breath, become confused, have worsening pain, pass out, have persistent vomiting that prevents you from being able to drink fluids for more than 12 hours, or have any other symptoms that are worrisome to you. Please follow-up with your primary care doctor in the next 1- 2 days. Prescriptions: Prednisone [Deltasone 20 mg Tablet] 2 tab PO DAILY 5 Days #10 tablet Levofloxacin [Levaquin 750 mg Tablet] 750 mg PO DAILY #5 tablet Referrals: ENRIQUETA ARANGO MD [Primary Care Provider] - Follow up as needed
[2019-09-02 00:44] VITALS: BP 127/79
== END 2019-09-02 00:43 | disposition home or self-care (01) ==
LOC: ER 18:40
DX: J44.1 Chronic obstructive pulmonary disease with (acute) exacerbation (principal); J18.9 Pneumonia, unspecified organism; R06.02 Shortness of breath; R51 Headache; Z99.81 Dependence on supplemental oxygen
CPT/HCPCS: 93005; 99284; 96365; 96366; 36415; 87040; 83605; 85025; 80053; 81001; 84484; 83880; 71045; 70450; 93010; J1956